=== PATIENT | female | born 2005 | race Caucasian/White ===

== ENCOUNTER 2025-06-03 19:56 | Emergency (ER) | payer BC, OTHER ==
[~2025-06-03] VITALS: Ht 157.5 cm; Wt 39.5 kg
[2025-06-04] MEDS ORDERED: METOCLOPRAMIDE HCL 10 MG/2ML VIAL IV ONE
[2025-06-04] MEDS: SODIUM CHLORIDE 0.9% 1000ML 1,000 ML IV ONE (00:12)
[2025-06-04] MEDS ORDERED: KETOROLAC TROMETHAMINE 30 MG/ML VIAL IV ONE (00:31)
[2025-06-04 00:57] VITALS: PULSE 65; RESP 16; TEMP 97.9
[2025-06-04 01:10] VITALS: BP 118/78; PULSE 68; RESP 16; TEMP 97.9; O2SAT 100
== END 2025-06-04 01:13 | disposition home or self-care (01) ==
LOC: FSED 20:29
DX: R06.02 Shortness of breath (principal); R07.89 Other chest pain; G43.909 Migraine, unspecified, not intractable, without status migrainosus
CPT/HCPCS: 71046; 80048; 80307; 81003; 81025; 83880; 84484; 85025; 85379; 93005; 99284; J1885; J2765; J7030